=== PATIENT | male | born 1960 | race Two or more races ===

== ENCOUNTER 2022-12-16 16:18 | Emergency (ER) | payer MEDICAID, OTHER ==
[~2022-12-16] VITALS: Ht 167.6 cm; Wt 78.4 kg
[2022-12-16 17:20] VITALS: BP 136/79; PULSE 91; RESP 20; TEMP 97.9; O2SAT 99
[2022-12-16] MEDS ORDERED: AMOX875T3 PO (18:06)
[2022-12-16] MEDS ORDERED: ACET-1080 PO (18:06)
== END 2022-12-16 18:12 | disposition home or self-care (01) ==
LOC: ER 16:18
DX: H61.21 Impacted cerumen, right ear (principal); H66.91 Otitis media, unspecified, right ear; Z79.1 Long term (current) use of non-steroidal anti-inflammatories (NSAID); Z79.899 Other long term (current) drug therapy
CPT/HCPCS: 69209

== ENCOUNTER → 2024-05-24 | Outpatient (CLI) | payer MEDICAID ==
[~2024-05-24] MED LIST: ACET-1080 PO; AMOX875T3 PO
--- NOTE | 2024-05-24 12:35 | DVHCARD ---
Cardiology Stress Test [place] Treadmill Stress Test [place] Referring MD: MD Rajan Protocol: Dilip (with cardiolite) Reason for referral: Chest Pain Target heart Rate:@85%: 135 Percent MPHR: 159 METS: 9.5 Resting Heart rate: 71 Resting Blood Pressure: 133/82 Exercise Heart Rate: 139 Exercise Blood Pressure: 185/111 Reason for Termination of Test: Shortness of breath Baseline EKG: NSR Stress EKG: Sinus tachycardia w/o evident ST-segment changes Functional Capacity: Mod. Decreased Heart Rate Response: Adequate Blood Pressure Response: Hypertensive Clinical response: Non-ischemic Arrhythmia?: No Cardiolite Injected?: Yes ST-T Changes: Non/Minimal Probability of Inducible Ische: Low Comments: Completed prematurely given increased fatigue and SOB. Date of Service: May 24, 2024 Billing Provider: OSEI VALDEZ Cardiology Common Codes: PROCEDURE ONLY Treadmill W/Cardiolite Nuclear: [id number], INTERP, RPT OESI VALDEZ May 24, 2024 12:35
--- NOTE | 2024-05-27 07:53 | DVHSR ---
APPROVED REPORT Exam: Nuclear Stress Test Indication: Chest pain BMI: 0 Medical History Medical History: DM, HTN, HLD Allergies: No known drug allergies Stress Test Details Stress Test: Exercise stress testing was performed using a Dilip protocol. HR Resting HR: 71 bpmMax Heart Rate (APMHR): 159.516673 bpm Max HR Achieved: 139 bpmTarget HR (85% APMHR): 135.426350 bpm % of APMHR: 87.42 Recovery HR: 100 bpm BP Resting BP: 133/82 mmHg Recovery BP: 152/82 mmHg ECG Resting ECG: Sinus Rhythm Clinical Reason for Termination: Fatigue Exercise duration: 7 min 37 sec Nurse Comments Recieved ambulatory, A/Ox4 on RA, connected to media monitor, VS stable. PIV S/L flushes well, revi ewed POC, pt verbalized understanding. Fabiano [employer] here to monitor exam. Treadmill test performed per protocol. Pt stable, tolerated well, VS returned to baseline. Pt to follow up with zinc miner for results. Stress ECG Conclusion stress ecg portion shows sinus tachy with no ischemic changes nuclear portion shows lvef 65% no relevant ischemia noted fised inferior wall defect noted at stress/ rest could be prior infarct vs GI artifact NM EXAM: Myocardial Perfusion REST/STRESS Imaging Protocol: Rest Tc-99m/Stress Tc-99m 1 day Resting Data Rest SPECT myocardial perfusion imaging was performed in supine position 60 minutes following the int ravenous injection of 12.4 mCi of Tc-99m Sestamibi. Time of rest injection: 1050 Time of rest imagin Administration Route: IV Administration Site: Right Hand Pharmacologic Stress Pharmacologic stress test was performed by injecting Regadenoson 0.4 mg IV push followed by the intra venous injection of 32.5 mCi of Tc-99m Sestamibi. Time of stress injection: 1225 Time of stress imagin Administration Route: IV Administration Site: Right Hand Gated Stress SPECT was performed 60 minutes after stress injection. The images were gated to evaluate regional wall motion and calculate left ventricular ejection fracti on. Stress only was performed in the Supine position. Nuclear Conclusion ECG Findings: negative for ischemia Nuclear Findings: negative for ischemia stress ecg portion shows sinus tachy with no ischemic changes nuclear portion shows lvef 65% no relevant ischemia noted fised inferior wall defect noted at stress/ rest could be prior infarct vs GI artifact
== END | disposition home or self-care (01) ==
LOC: XYW 10:04
PROVIDERS: ATTEND Internal Medicine
DX: R00.0 Tachycardia, unspecified (principal); R06.02 Shortness of breath; R07.9 Chest pain, unspecified; I10 Essential (primary) hypertension; E11.65 Type 2 diabetes mellitus with hyperglycemia; E78.5 Hyperlipidemia, unspecified; F43.9 Reaction to severe stress, unspecified; F41.1 Generalized anxiety disorder; Z79.4 Long term (current) use of insulin; Z82.49 Family history of ischemic heart disease and other diseases of the circulatory system
CPT/HCPCS: 78452; 93017; A9500